=== PATIENT | female | born 1960 | race African-American/Black ===

== ENCOUNTER 2017-07-26 14:22 | Outpatient (CLI) | payer BC ==
[~2017-07-26 14:22] MED LIST: ALPRAZOLAM1 MG ORAL; DEPAKENE250 MG ORAL; KALETRA 200-501 EACH ORAL; MIRTAZAPINE15 MG ORAL; NAPROSYN500 M1 ORAL; PRISTIQ50 MG PO; RESTORIL30 MG ORAL; TRAMADOL HCL50 MG ORAL; TRUVADA1 TAB ORAL; VALCYTE450 MG ORAL; ZYRTEC10 MG ORAL
--- NOTE | 2017-07-26 15:18 | Diagnostic Imaging Report ---
Indication: Neck pain Technique: MRI examination of the cervical spine was performed in a 1.5 Davida magnet. Sequences obtained include sagittal and axial T1 and T2 fast spin echo, and sagittal STIR. No IV gadolinium was given Comparison: none Findings: Bone marrow signal and alignment are normal. There is desiccation and narrowing of intervertebral discs especially at C4-5, C5-6 and C6-7. This is associated with a moderate size accompanying hypertrophic spurs but mainly project anteriorly. Uncovertebral spurs also demonstrated narrowing the neural foramina. There is no central stenosis. The spinal cord appears normal. No Chiari malformation demonstrated. C1-2 shows hypertrophic spurs at the junction of the dens and C1 arch. C2-3 is unremarkable. C3-4 shows mild left foraminal stenosis. C4-5 shows moderate disc disease and moderate bilateral foraminal stenosis. C5-6 shows moderate to severe disc disease and mild bilateral foraminal stenosis. C6-7 demonstrates a moderate to severe right foraminal stenosis and moderate left foraminal stenosis and moderate disc disease. C7-T1 demonstrates mild left foraminal stenosis. T1-2 shows mild anterolisthesis. Impression: Degenerative changes of the cervical spine as described above involving uncovertebral joints and discs. No cord compression or central stenosis. Multilevel neural foraminal stenosis as described above
== END 2017-07-26 16:22 | disposition home or self-care (01) ==
LOC: MRI 14:22
DX: G61.81 Chronic inflammatory demyelinating polyneuritis (principal); M50.322 Other cervical disc degeneration at C5-C6 level
CPT/HCPCS: 72141